=== PATIENT | female | born 1960 | race African-American/Black ===

== ENCOUNTER 2021-02-06 08:02 | Day surgery (SDC) | payer BC, OTHER ==
[2021-02-04 17:09] VITALS: BMI 46.0
[2021-02-06] MEDS ORDERED: BUPIVACAINE HCL/PF 0.25% (2.5MG/ML) 10 ML VIAL ONE (09:08)
[2021-02-06] MEDS ORDERED: TRIAMCINOLONE ACET 40MG/1ML VIAL ONE (09:08)
[2021-02-06] MEDS ORDERED: MIDAZOLAM HCL 2 MG/2 ML SINGLE DOSE VIAL ONE (09:32)
[2021-02-06] MEDS ORDERED: PROPOFOL 20 ML ONE (09:32)
[2021-02-06] MEDS ORDERED: DEXAMETHASONE SOD PHOSPHATE 4 MG/1 ML VIAL ONE (09:32)
[2021-02-06] MEDS ORDERED: ONDANSETRON 4 MG/2 ML VIAL ONE (09:32)
[2021-02-06] MEDS ORDERED: BUPIVACAINE HCL/PF 0.25% (2.5MG/ML) 10 ML VIAL IJ ONE (10:46)
[2021-02-06] MEDS ORDERED: oxyCODONE HCL 5 MG TABLET PO PRN ×2 (12:07)
[2021-02-06] MEDS ORDERED: ONDANSETRON 4 MG/2 ML VIAL IVPUSH PRN (12:07)
[2021-02-06] MEDS ORDERED: LACTATED RINGERS SOLUTION 1,000 ML IV SCH (12:15)
[2021-02-06 13:08] VITALS: TEMP 98
[2021-02-06] MEDS ORDERED: oxyCODONE HCL 5 MG TABLET ONE (13:15)
[2021-02-06 14:02] VITALS: BP 112/66; PULSE 67
== END 2021-02-06 14:02 | disposition home or self-care (01) ==
LOC: FASU 08:02
PROVIDERS: ATTEND Orthopaedic Surgery Orthopaedic Surgery of the Spine
PROC: 0SCC4ZZ Extirpation of Matter from Right Knee Joint, Percutaneous Endoscopic Approach (ICD-10-PCS; principal; 2021-02-06 10:39)
DX: M17.11 Unilateral primary osteoarthritis, right knee (principal); M23.41 Loose body in knee, right knee; M23.300 Other meniscus derangements, unspecified lateral meniscus, right knee
CPT/HCPCS: 94760